=== PATIENT | male | born 1990 | race Two or more races ===

== ENCOUNTER 2021-02-26 11:57 | Emergency (ER) | payer OTHER ==
[~2021-02-26] VITALS: Ht 165.1 cm; Wt 102.1 kg
[2021-02-26] MEDS ORDERED: CLINDAMYCIN HC300 MG PO (15:36)
[2021-02-26] MEDS ORDERED: KETO10TA2 PO (15:36)
[2021-02-26] MEDS ORDERED: INTESTINEX680 M1 PO (15:36)
== END 2021-02-26 16:20 | disposition home or self-care (01) ==
LOC: ER 11:57
DX: K04.7 Periapical abscess without sinus (principal); K08.89 Other specified disorders of teeth and supporting structures